=== PATIENT | female | born 2000 | race African-American/Black ===

== ENCOUNTER 2022-05-08 07:38 | Emergency (ER) | payer BC, OTHER ==
--- OUTSIDE RECORDS SUMMARY | 2022-05-08 07:42 | XMS REPORT | Continuity of Care Document ---
:2000 Author Organization [facility] t Address [address] [place] [address] Care Team Providers Name Role Phone Kailey Joel Attending Clinician Unavailable Payers Payer Name Policy Type Policy Number Effective Date Expiration Date S david [employer] 6 [id number] [facility] [employer] of [facility] AETNA C1 [id number] 2020 [facility] 00:00:00 [facility] AETNA C1 [id number] 2020 [facility] 00:00:00 [facility] Problems Condition Condition Condition Status Onset Resolution Last Treating Co mments Source Name Details Category Date Date Treatment Clinician Date [id number] Gastroesop Problem Co mmon hageal [facility] reflux - [facility] disease [facility] esophagiti Medica l s [place] [id number] Seasonal Problem Comm on allergic Spirit rhinitis, - [facility] unspecifie d [facility] [id number] Anxiety Problem Common Spirit [facility] [id number] PMS Problem Common (premenstr Spirit ual - [facility] syndrome) [facility] [id number] Exposure Problem Com mon 105 to strep Spirit throat [facility] [id number] Needs flu Problem Com mon shot Spirit [facility] [id number] Open wound Problem C ommon [id number] of left Spirit thumb, - [facility] initial [facility] [id number] Seasonal Problem Commo n allergic Spirit rhinitis - [facility] due to [facility] [id number] Acute Problem Common non-recurr Spirit ent - [facility] maxillary sinusitis [facility] [id number] Jaw pain Problem Comm on [facility] Vitamin D Vitamin D Problem Com [facility] Allergies, Adverse Reactions, Alerts This patient has no known allergies or adverse reactions. Social History Social Habit Start Date Stop Date Quantity Comments Source History of Tobacco Use Co mmon [facility] Sex Assigned At Com mon [facility] Smoking Status Start Date Stop Date Source Never Smoker Common [facility] Medications Ordered Filled Start Stop Current Ordering Indication Dosage Frequency Signature Comments Components Source Medication Medication Date Date Medication? Clinician (SIG) Name Name Penicillin Penicillin 2021-03 No 1{table BID Penicillin V Potassium V Potassium 0-14 10-24 t} V 500 MG 500 MG 00:00: 00:00 Potassium 00 :00 500 MG Penicillin Penicillin 2021-03- No 1{table BID Penicillin V Potassium V Potassium 0-14 10-24 t} V 500 MG 500 MG 00:00: 00:00 Potassium 00 :00 500 MG Medrol 4 MG Medrol 4 MG 2021-03- No QD Medrol 4 0-14 10-20 MG 00:00: 00:00 00 :00 Medrol 4 MG Medrol 4 MG 2021-03- No QD Medrol 4 0-14 10-20 MG 00:00: 00:00 00 :00 Fluconazole Fluconazole 2021- No 1{table Fluconazol 150 MG 150 MG 04-09 t} e 150 MG 00:00: 00:00 00 :00 Fluconazole Fluconazole 2021- No 1{table Fluconazol 150 MG 150 MG 04-09 t} e 150 MG 00:00: 00:00 00 :00 Flonase 50 Flonase 50 No 2{spray QD Flonase 50 MCG/ACT MCG/ACT 04-05 _in_eac MCG/ACT 00:00: h_nostr 00 il} Cetirizine Cetirizine 2022-0 No 1{table Cetirizine HCl 10 MG HCl 10 MG 1-06 t} HCl 10 MG 00:00: 00 Flonase 50 Flonase 50 2-0 No 2{spray QD Flonase 50 MCG/ACT MCG/ACT 04-05 _in_eac MCG/ACT 00:00: h_nostr 00 il} Cetirizine Cetirizine 2021-0 No 1{table Cetirizine HCl 10 MG HCl 10 MG 1-06 t} HCl 10 MG 00:00: 00 Flonase 50 Flonase 50 2021-0 No 2{spray QD Flonase 50 MCG/ACT MCG/ACT 04-05 _in_eac MCG/ACT 00:00: h_nostr 00 il} Cetirizine Cetirizine 2021-0 No 1{table Cetirizine HCl 10 MG HCl 10 MG 1-06 t} HCl 10 MG 00:00: 00 Flonase 50 Flonase 50 2-0 No 2{spray QD Flonase 50 MCG/ACT MCG/ACT 04-05 _in_eac MCG/ACT 00:00: h_nostr 00 il} Cetirizine Cetirizine 2021-0 No 1{table Cetirizine HCl 10 MG HCl 10 MG 1-06 t} HCl 10 MG 00:00: 00 Cetirizine Cetirizine 2021-0 No 1{table Cetirizine HCl 10 MG HCl 10 MG 1-06 t} HCl 10 MG 00:00: 00 Flonase 50 Flonase 50 2-0 No 2{spray QD Flonase 50 MCG/ACT MCG/ACT 04-05 _in_eac MCG/ACT 00:00: h_nostr 00 il} Flonase 50 Flonase 50 2-0 No 2{spray QD Flonase 50 MCG/ACT MCG/ACT - _in_eac MCG/ACT 00:00: h_nostr 00 il} Cetirizine Cetirizine 2021-0 No 1{table Cetirizine HCl 10 MG HCl 10 MG 1-06 t} HCl 10 MG 00:00: 00 Flonase 50 Flonase 50 2-0 No 2{spray QD Flonase 50 MCG/ACT MCG/ACT 1-06 _in_eac MCG/ACT 00:00: h_nostr 00 il} Cetirizine Cetirizine 2021-0 No 1{table Cetirizine HCl 10 MG HCl 10 MG 1-06 t} HCl 10 MG 00:00: 00 Famotidine Famotidine 2020-0 No QD Famotidine 40 MG 40 MG 9-08 40 MG 00:00: 00 Famotidine Famotidine 2020-0 No QD Famotidine 40 MG 40 MG 9-08 40 MG 00:00: 00 Famotidine Famotidine 2020-0 No QD Famotidine 40 MG 40 MG 9-08 40 MG 00:00: 00 Famotidine Famotidine 2020-0 No QD Famotidine 40 MG 40 MG -08 40 MG 00:00: 00 Famotidine Famotidine 2020-0 No QD Famotidine 40 MG 40 MG -08 40 MG 00:00: 00 Famotidine Famotidine 2020-0 No QD Famotidine 40 MG 40 MG -08 40 MG 00:00: 00 Famotidine Famotidine 2020-0 No QD Famotidine 40 MG 40 MG 9-08 40 MG 00:00: 00 Famotidine Famotidine 2020-0 No QD Famotidine 40 MG 40 MG 9-08 40 MG 00:00: 00 Famotidine Famotidine 2020-0 No QD Famotidine 40 MG 40 MG 9-08 40 MG 00:00: 00 Famotidine Famotidine 2020-0 No QD Famotidine 40 MG 40 MG 9-08 40 MG 00:00: 00 Famotidine Famotidine 2020-0 No QD Famotidine 40 MG 40 MG 9-08 40 MG 00:00: 00 Augmentin Augmentin 2020-0 2021- No 1{table BID Augmentin 500-125 MG 500-125 MG 8-18 08-25 t} 500-125 MG 00:00: 00:00 00 :00 Ortho Ortho 2020-0 No 1{table QD Ortho Tri-Cyclen Tri-Cyclen 5-26 t} Tri-Cyclen Lo Lo 00:00: Lo 0.18/0.215/ 0.18/0.215/ 00 0.18/0.215 0.25 MG-25 0.25 MG-25 /0.25 MCG MCG MG-25 MCG Ortho Ortho -0 No 1{table QD Ortho Tri-Cyclen Tri-Cyclen 5-26 t} Tri-Cyclen Lo Lo 00:00: Lo 0.18/0.215/ 0.18/0.215/ 00 0.18/0.215 0.25 MG-25 0.25 MG-25 /0.25 MCG MCG MG-25 MCG Ortho Ortho 202-0 No 1{table QD Ortho Tri-Cyclen Tri-Cyclen 5-26 t} Tri-Cyclen Lo Lo 00:00: Lo 0.18/0.215/ 0.18/0.215/ 00 0.18/0.215 0.25 MG-25 0.25 MG-25 /0.25 MCG MCG MG-25 MCG Ortho Ortho 2020-0 No 1{table QD Ortho Tri-Cyclen Tri-Cyclen 5-26 t} Tri-Cyclen Lo Lo 00:00: Lo 0.18/0.215/ 0.18/0.215/ 00 0.18/0.215 0.25 MG-25 0.25 MG-25 /0.25 MCG MCG MG-25 MCG Ortho Ortho 2020-0 No 1{table QD Ortho Tri-Cyclen Tri-Cyclen 5-26 t} Tri-Cyclen Lo Lo 00:00: Lo 0.18/0.215/ 0.18/0.215/ 00 0.18/0.215 0.25 MG-25 0.25 MG-25 /0.25 MCG MCG MG-25 MCG Ortho Ortho 202-0 No 1{table QD Ortho Tri-Cyclen Tri-Cyclen 5-26 t} Tri-Cyclen Lo Lo 00:00: Lo 0.18/0.215/ 0.18/0.215/ 00 0.18/0.215 0.25 MG-25 0.25 MG-25 /0.25 MCG MCG MG-25 MCG Ortho Ortho 202-0 No 1{table QD Ortho Tri-Cyclen Tri-Cyclen 5-26 t} Tri-Cyclen Lo Lo 00:00: Lo 0.18/0.215/ 0.18/0.215/ 00 0.18/0.215 0.25 MG-25 0.25 MG-25 /0.25 MCG MCG MG-25 MCG Ortho Ortho 202-0 No 1{table QD Ortho Tri-Cyclen Tri-Cyclen 5-26 t} Tri-Cyclen Lo Lo 00:00: Lo 0.18/0.215/ 0.18/0.215/ 00 0.18/0.215 0.25 MG-25 0.25 MG-25 /0.25 MCG MCG MG-25 MCG Ortho Ortho 202-0 No 1{table QD Ortho Tri-Cyclen Tri-Cyclen 5-26 t} Tri-Cyclen Lo Lo 00:00: Lo 0.18/0.215/ 0.18/0.215/ 00 0.18/0.215 0.25 MG-25 0.25 MG-25 /0.25 MCG MCG MG-25 MCG Ortho Ortho 2020-0 No 1{table QD Ortho Tri-Cyclen Tri-Cyclen 5-26 t} Tri-Cyclen Lo Lo 00:00: Lo 0.18/0.215/ 0.18/0.215/ 00 0.18/0.215 0.25 MG-25 0.25 MG-25 /0.25 MCG MCG MG-25 MCG Ortho Ortho 2020-0 No 1{table QD Ortho Tri-Cyclen Tri-Cyclen 5-26 t} Tri-Cyclen Lo Lo 00:00: Lo 0.18/0.215/ 0.18/0.215/ 00 0.18/0.215 0.25 MG-25 0.25 MG-25 /0.25 MCG MCG MG-25 MCG Ortho Ortho 202-0 No 1{table QD Ortho Tri-Cyclen Tri-Cyclen 5-26 t} Tri-Cyclen Lo Lo 00:00: Lo 0.18/0.215/ 0.18/0.215/ 00 0.18/0.215 0.25 MG-25 0.25 MG-25 /0.25 MCG MCG MG-25 MCG Ortho Ortho 202-0 No 1{table QD Ortho Tri-Cyclen Tri-Cyclen 5-26 t} Tri-Cyclen Lo Lo 00:00: Lo 0.18/0.215/ 0.18/0.215/ 00 0.18/0.215 0.25 MG-25 0.25 MG-25 /0.25 MCG MCG MG-25 MCG Ortho Ortho 202-0 No 1{table QD Tri-Cyclen Tri-Cyclen 5-26 t} Lo Lo 00:00: 0.18/0.215/ 0.18/0.215/ 00 0.25 MG-25 0.25 MG-25 MCG MCG Ortho Ortho No 1{table QD Ortho Common Tri-Cyclen Tri-Cyclen 5-26 t} Tri-Cyclen Spirit Lo Lo 00:00: Lo - [facility]I 0.18/0.215/ 0.18/0.215/ 00 0.18/0.215 St 0.25 MG-25 0.25 MG-25 /0.25 Meenakshi kes MCG MCG MG-25 MCG [facility] Ortho Ortho No 1{table QD Ortho Tri-Cyclen Tri-Cyclen 5-26 t} Tri-Cyclen Lo Lo 00:00: Lo 0.18/0.215/ 0.18/0.215/ 00 0.18/0.215 0.25 MG-25 0.25 MG-25 /0.25 MCG MCG MG-25 MCG Ortho Ortho No 1{table QD Ortho Tri-Cyclen Tri-Cyclen 5-26 t} Tri-Cyclen Lo Lo 00:00: Lo 0.18/0.215/ 0.18/0.215/ 00 0.18/0.215 0.25 MG-25 0.25 MG-25 /0.25 MCG MCG MG-25 MCG Triamcinolo Triamcinolo Yes Na Joel 1 Common ne ne 04-28 applicatio Spirit Acetonide Acetonide 00:00: n to - C HI 00 affected [facility] Triamcinolo Triamcinolo No 1{appli BID Triamcinol ne ne 04-28 cation_ one Acetonide Acetonide 00:00: to_affe Acetonide 0.1 % 0.1 % 00 cted_ar 0.1 % ea} Triamcinolo Triamcinolo 2019- No 1{appli BID Triamcinol ne ne - cation_ one Acetonide Acetonide 00:00: to_affe Acetonide 0.1 % 0.1 % 00 cted_ar 0.1 % ea} Triamcinolo Triamcinolo No 1{appli BID Triamcinol ne ne 04-28 cation_ one Acetonide Acetonide 00:00: to_affe Acetonide 0.1 % 0.1 % 00 cted_ar 0.1 % ea} Triamcinolo Triamcinolo 2020-0 No 1{appli BID Triamcinol ne ne 04-28 cation_ one Acetonide Acetonide 00:00: to_affe Acetonide 0.1 % 0.1 % 00 cted_ar 0.1 % ea} Triamcinolo Triamcinolo 2020-0 No 1{appli BID Triamcinol ne ne 04-28 cation_ one Acetonide Acetonide 00:00: to_affe Acetonide 0.1 % 0.1 % 00 cted_ar 0.1 % ea} Triamcinolo Triamcinolo 2020-0 No 1{appli BID Triamcinol ne ne 04-28 cation_ one Acetonide Acetonide 00:00: to_affe Acetonide 0.1 % 0.1 % 00 cted_ar 0.1 % ea} Triamcinolo Triamcinolo 2020-0 No 1{appli BID Triamcinol ne ne 04-28 cation_ one Acetonide Acetonide 00:00: to_affe Acetonide 0.1 % 0.1 % 00 cted_ar 0.1 % ea} Triamcinolo Triamcinolo 2020-0 No 1{appli BID Triamcinol ne ne 04-28 cation_ one Acetonide Acetonide 00:00: to_affe Acetonide 0.1 % 0.1 % 00 cted_ar 0.1 % ea} Triamcinolo Triamcinolo 2020-0 No 1{appli BID Triamcinol ne ne 04-28 cation_ one Acetonide Acetonide 00:00: to_affe Acetonide 0.1 % 0.1 % 00 cted_ar 0.1 % ea} Triamcinolo Triamcinolo 2020-0 No 1{appli BID Triamcinol ne ne - cation_ one Acetonide Acetonide 00:00: to_affe Acetonide 0.1 % 0.1 % 00 cted_ar 0.1 % ea} Triamcinolo Triamcinolo 2020-0 No 1{appli BID Triamcinol ne ne 04-28 cation_ one Acetonide Acetonide 00:00: to_affe Acetonide 0.1 % 0.1 % 00 cted_ar 0.1 % ea} Triamcinolo Triamcinolo 2020-0 No 1{appli BID Triamcinol ne ne 04-28 cation_ one Acetonide Acetonide 00:00: to_affe Acetonide 0.1 % 0.1 % 00 cted_ar 0.1 % ea} Triamcinolo Triamcinolo 2019-0 No 1{appli BID Triamcinol ne ne 04-28 cation_ one Acetonide Acetonide 00:00: to_affe Acetonide 0.1 % 0.1 % 00 cted_ar 0.1 % ea} Triamcinolo Triamcinolo 2020-0 No 1{appli BID Triamcinol ne ne 04-28 cation_ one Acetonide Acetonide 00:00: to_affe Acetonide 0.1 % 0.1 % 00 cted_ar 0.1 % ea} Triamcinolo Triamcinolo 2019-0 No 1{appli BID ne ne 04-28 cation_ Acetonide Acetonide 00:00: to_affe 0.1 % 0.1 % 00 cted_ar ea} Triamcinolo Triamcinolo 2019-0 No 1{appli BID Triamcinol Common ne ne 04-28 cation_ one Spirit Acetonide Acetonide 00:00: to_affe Acetonide - [facility]I 0.1 % 0.1 % 00 cted_ar 0.1 % St ea} [facility] Triamcinolo Triamcinolo 2020-0 No 1{appli BID Triamcinol ne ne 04-28 cation_ one Acetonide Acetonide 00:00: to_affe Acetonide 0.1 % 0.1 % 00 cted_ar 0.1 % ea} Triamcinolo Triamcinolo 2020-0 No 1{appli BID Triamcinol ne ne - cation_ one Acetonide Acetonide 00:00: to_affe Acetonide 0.1 % 0.1 % 00 cted_ar 0.1 % ea} Montelukast Montelukast 2017-0 Yes Na Joel 1 tablet Common Sodium Sodium 8-06 in the Spirit 00:00: evening - [facility] 00 [facility] Montelukast Montelukast No 1{table QD Montelukas Sodium 10 Sodium 10 8-06 t_in_th t Sodium MG MG 00:00: e_eveni 10 MG 00 ng} Montelukast Montelukast 2017- No 1{table QD Montelukas Sodium 10 Sodium 10 8-06 t_in_th t Sodium MG MG 00:00: e_eveni 10 MG 00 ng} Montelukast Montelukast No 1{table QD Montelukas Sodium 10 Sodium 10 8-06 t_in_th t Sodium MG MG 00:00: e_eveni 10 MG 00 ng} Montelukast Montelukast No 1{table QD Montelukas Sodium 10 Sodium 10 8-06 t_in_th t Sodium MG MG 00:00: e_eveni 10 MG 00 ng} Montelukast Montelukast No 1{table QD Montelukas Sodium 10 Sodium 10 8-06 t_in_th t Sodium MG MG 00:00: e_eveni 10 MG 00 ng} Montelukast Montelukast No 1{table QD Montelukas Sodium 10 Sodium 10 8-06 t_in_th t Sodium MG MG 00:00: e_eveni 10 MG 00 ng} Montelukast Montelukast No 1{table QD Montelukas Sodium 10 Sodium 10 8-06 t_in_th t Sodium MG MG 00:00: e_eveni 10 MG 00 ng} Montelukast Montelukast 0 No 1{table QD Montelukas Sodium 10 Sodium 10 8-06 t_in_th t Sodium MG MG 00:00: e_eveni 10 MG 00 ng} Montelukast Montelukast 0 No 1{table QD Montelukas Sodium 10 Sodium 10 8-06 t_in_th t Sodium MG MG 00:00: e_eveni 10 MG 00 ng} Montelukast Montelukast 2017-0 No 1{table QD Montelukas Sodium 10 Sodium 10 8-06 t_in_th t Sodium MG MG 00:00: e_eveni 10 MG 00 ng} Montelukast Montelukast 2018-0 No 1{table QD Montelukas Sodium 10 Sodium 10 8-06 t_in_th t Sodium MG MG 00:00: e_eveni 10 MG 00 ng} Montelukast Montelukast 2018-0 No 1{table QD Montelukas Sodium 10 Sodium 10 8-06 t_in_th t Sodium MG MG 00:00: e_eveni 10 MG 00 ng} Montelukast Montelukast 2017-0 No 1{table QD Montelukas Sodium 10 Sodium 10 8-06 t_in_th t Sodium MG MG 00:00: e_eveni 10 MG 00 ng} Montelukast Montelukast 2017-0 No 1{table QD Montelukas Sodium 10 Sodium 10 8-06 t_in_th t Sodium MG MG 00:00: e_eveni 10 MG 00 ng} Montelukast Montelukast 2017-0 No 1{table QD Montelukas Sodium 10 Sodium 10 8-06 t_in_th t Sodium MG MG 00:00: e_eveni 10 MG 00 ng} Montelukast Montelukast 2017-0 No 1{table QD Sodium 10 Sodium 10 8-06 t_in_th MG MG 00:00: e_eveni 00 ng} Montelukast Montelukast 2017-0 No 1{table QD Montelukas Common Sodium 10 Sodium 10 8-06 t_in_th t Sodium Spirit MG MG 00:00: e_eveni 10 MG - CHI 00 ng} [facility] Montelukast Montelukast 2017-0 No 1{table QD Montelukas Sodium 10 Sodium 10 8-06 t_in_th t Sodium MG MG 00:00: e_eveni 10 MG 00 ng} Sertraline Sertraline 2017- Yes Na Joel 1 tablet Common HCl HCl 5-15 Spirit 00:00: - [facility] 00 [facility] Sertraline Sertraline 2017-0 No 1{table QD Sertraline HCl 50 MG HCl 50 MG 5-15 t} HCl 50 MG 00:00: 00 Sertraline Sertraline 2017-0 No 1{table QD Sertraline HCl 50 MG HCl 50 MG 5-15 t} HCl 50 MG 00:00: 00 Sertraline Sertraline 2017-0 No 1{table QD Sertraline HCl 50 MG HCl 50 MG 5-15 t} HCl 50 MG 00:00: 00 Sertraline Sertraline 2017-0 No 1{table QD Sertraline HCl 50 MG HCl 50 MG 5-15 t} HCl 50 MG 00:00: 00 Sertraline Sertraline No 1{table QD Sertraline HCl 50 MG HCl 50 MG 5-15 t} HCl 50 MG 00:00: 00 Sertraline Sertraline 0 No 1{table QD Sertraline HCl 50 MG HCl 50 MG 5-15 t} HCl 50 MG 00:00: 00 Sertraline Sertraline No 1{table QD Sertraline HCl 50 MG HCl 50 MG 5-15 t} HCl 50 MG 00:00: 00 Sertraline Sertraline No 1{table QD Sertraline HCl 50 MG HCl 50 MG 5-15 t} HCl 50 MG 00:00: 00 Sertraline Sertraline No 1{table QD Sertraline HCl 50 MG HCl 50 MG 5-15 t} HCl 50 MG 00:00: 00 Sertraline Sertraline No 1{table QD Sertraline HCl 50 MG HCl 50 MG 5-15 t} HCl 50 MG 00:00: 00 Sertraline Sertraline No 1{table QD Sertraline HCl 50 MG HCl 50 MG 5-15 t} HCl 50 MG 00:00: 00 Sertraline Sertraline No 1{table QD Sertraline HCl 50 MG HCl 50 MG 5-15 t} HCl 50 MG 00:00: 00 Sertraline Sertraline No 1{table QD Sertraline HCl 50 MG HCl 50 MG 5-15 t} HCl 50 MG 00:00: 00 Sertraline Sertraline No 1{table QD Sertraline HCl 50 MG HCl 50 MG 5-15 t} HCl 50 MG 00:00: 00 Sertraline Sertraline No 1{table QD Sertraline HCl 50 MG HCl 50 MG 5-15 t} HCl 50 MG 00:00: 00 Sertraline Sertraline 0 No 1{table QD HCl 50 MG HCl 50 MG 5-15 t} 00:00: 00 Sertraline Sertraline No 1{table QD Sertraline Common HCl 50 MG HCl 50 MG 5-15 t} HCl 50 MG Spirit 00:00: - [facility] 00 [facility] Sertraline Sertraline No 1{table QD Sertraline HCl 50 MG HCl 50 MG 5-15 t} HCl 50 MG 00:00: 00 Flonase Flonase Yes Na Joel 2 spray in Common each Spirit nostril - CHI [facility] Flonase 50 Flonase 50 No 2{spray QD Flonase 50 MCG/ACT MCG/ACT _in_eac MCG/ACT h_nostr il} Flonase 50 Flonase 50 No 2{spray QD Flonase 50 MCG/ACT MCG/ACT _in_eac MCG/ACT h_nostr il} Flonase 50 Flonase 50 No 2{spray QD Flonase 50 MCG/ACT MCG/ACT _in_eac MCG/ACT h_nostr il} Famotidine Famotidine No QD Famotidine 40 MG 40 MG 40 MG Flonase 50 Flonase 50 No 2{spray QD Flonase 50 MCG/ACT MCG/ACT _in_eac MCG/ACT h_nostr il} Flonase 50 Flonase 50 No 2{spray QD Flonase 50 MCG/ACT MCG/ACT _in_eac MCG/ACT h_nostr il} Flonase 50 Flonase 50 No 2{spray QD Flonase 50 MCG/ACT MCG/ACT _in_eac MCG/ACT h_nostr il} Azithromyci Azithromyci No QD Azithromyc n 250 MG n 250 MG in 250 MG Flonase 50 Flonase 50 No 2{spray QD Flonase 50 MCG/ACT MCG/ACT _in_eac MCG/ACT h_nostr il} Azithromyci Azithromyci No QD Azithromyc n 250 MG n 250 MG in 250 MG Flonase 50 Flonase 50 No 2{spray QD Flonase 50 MCG/ACT MCG/ACT _in_eac MCG/ACT h_nostr il} Flonase 50 Flonase 50 No 2{spray QD Flonase 50 MCG/ACT MCG/ACT _in_eac MCG/ACT h_nostr il} Azithromyci Azithromyci No QD Azithromyc n 250 MG n 250 MG in 250 MG Flonase 50 Flonase 50 No 2{spray QD Flonase 50 MCG/ACT MCG/ACT _in_eac MCG/ACT h_nostr il} Azithromyci Azithromyci No QD Azithromyc n 250 MG n 250 MG in 250 MG Flonase 50 Flonase 50 No 2{spray QD Flonase 50 MCG/ACT MCG/ACT _in_eac MCG/ACT h_nostr il} Azithromyci Azithromyci No QD Azithromyc n 250 MG n 250 MG in 250 MG Flonase 50 Flonase 50 No 2{spray QD Flonase 50 MCG/ACT MCG/ACT _in_eac MCG/ACT h_nostr il} Azithromyci Azithromyci No QD Azithromyc n 250 MG n 250 MG in 250 MG Flonase 50 Flonase 50 No 2{spray QD Flonase 50 MCG/ACT MCG/ACT _in_eac MCG/ACT h_nostr il} Azithromyci Azithromyci No QD Azithromyc n 250 MG n 250 MG in 250 MG Flonase 50 Flonase 50 No 2{spray QD Flonase 50 MCG/ACT MCG/ACT _in_eac MCG/ACT h_nostr il} Flonase 50 Flonase 50 No 2{spray QD MCG/ACT MCG/ACT _in_eac h_nostr il} Flonase 50 Flonase 50 No 2{spray QD Flonase 50 Common MCG/ACT MCG/ACT _in_eac MCG/ACT Spi rit h_nostr - CHI il} [facility] Flonase 50 Flonase 50 No 2{spray QD Flonase 50 MCG/ACT MCG/ACT _in_eac MCG/ACT h_nostr il} Flonase 50 Flonase 50 No 2{spray QD Flonase 50 MCG/ACT MCG/ACT _in_eac MCG/ACT h_nostr il} Immunizations Ordered Immunization Filled Immunization Date Status Commen ts Source Name Name Td Td 2020-05-11 Completed [facility] 12:56[facility] Td Td 2020-05-11 Completed [facility] 12[facility]56:00 [facility] Td Td 2020-05-11 Completed [facility] 12:56:00 [facility] Td Td 2020-05-11 Completed [facility] 12:56:00 [facility] Td Td 2020-05-11 Completed [facility] 12:56:00 [facility] Td Td 2020-05-11 Completed [facility] 12:56:00 - [facility] Td Td 2020-05-11 Completed [facility] 12:56:00 - [facility] Td Td 2020-05-11 Completed [facility] 12:56:00 - [facility] Td Td 2020-05-11 Completed [facility] 12[facility]56:00 - [facility] Td Td 2020-05-11 Completed [facility] 12:56:00 [facility] Td Td 2020-05-11 Completed [facility] 12:56:00 [facility] Td Td 2020-05-11 Completed [facility] 12:56:00 - [facility] Td Td 2020-05-11 Completed [facility] 12:56:00 - [facility] Td Td 2020-05-11 Completed [facility] 12:56:00 - [facility] Td Td 2020-05-11 Completed [facility] 12:56:00 [facility] Td Td 2020-05-11 Completed [facility] 12:56:00 - [facility] Td Td 2020-05-11 Completed [facility] 12:56:00 [facility] Td Td 2020-05-11 Completed [facility] 12:56:00 [facility] Afluria single dose Afluria single dose 2020-03-03 Completed [facility] 11:26:00 [facility] Afluria single dose Afluria single dose 2020-03-03 Completed [facility] 11:26:00 [facility] Afluria single dose Afluria single dose 2020-03-03 Completed [facility] 11:26:00 [facility] Afluria single dose Afluria single dose 2020-03-03 Completed [facility] 11:26:00 [facility] Afluria single dose Afluria single dose 2020-03-03 Completed [facility] 11:26:00 [facility] Afluria single dose Afluria single dose 2020-03-03 Completed [facility] 11:26:00 [facility] Afluria single dose Afluria single dose 2020-03-03 Completed [facility] 11::00 [facility] Afluria single dose Afluria single dose 2020-03-03 Completed [facility] 11:26:00 [facility] Afluria single dose Afluria single dose 2020-03-03 Completed [facility] 11:26:00 [facility] Afluria single dose Afluria single dose 2020-03-03 Completed [facility] 11:26:00 [facility] Afluria single dose Afluria single dose 2020-03-03 Completed [facility] 11::00 [facility] Afluria single dose Afluria single dose 2020-03-03 Completed [facility] 11:26:00 - [facility] Afluria single dose Afluria single dose 2020-03-03 Completed [facility] 11[facility]26:00 - [facility] Afluria single dose Afluria single dose 2020-03-03 Completed [facility] 11:26:00 [facility] Afluria single dose Afluria single dose 2020-03-03 Completed [facility] 11:26:00 [facility] Afluria single dose Afluria single dose 2020-03-03 Completed [facility] 11:26:00 [facility] Afluria single dose Afluria single dose 2020-03-03 Completed [facility] 11:26:00 [facility] Afluria single dose Afluria single dose 2020-03-03 Completed [facility] 11:26:00 [facility] Meningoccal MCV4 Meningoccal MCV4 2017-11-20 Completed [facility] 08[facility]44:00 [facility] Meningoccal MCV4 Meningoccal MCV4 2017-11-20 Completed [facility] 08:44:00 [facility] Meningoccal MCV4 Meningoccal MCV4 2017-11-20 Completed [facility] 08:44:00 [facility] Meningoccal MCV4 Meningoccal MCV4 2017-11-20 Completed [facility] 08:44:00 [facility] Meningoccal MCV4 Meningoccal MCV4 2017-11-20 Completed [facility] 08[facility]44:00 - [facility] Meningoccal MCV4 Meningoccal MCV4 2017-11-20 Completed [facility] 08:44:00 - [facility] Meningoccal MCV4 Meningoccal MCV4 2017-11-20 Completed [facility] 08:44:00 - [facility] Meningoccal MCV4 Meningoccal MCV4 2017-11-20 Completed [facility] 08:44:00 - [facility] Meningoccal MCV4 Meningoccal MCV4 2017-11-20 Completed [facility] 08:44:00 - [facility] Meningoccal MCV4 Meningoccal MCV4 2017-11-20 Completed [facility] 08:44:00 - [facility] Meningoccal MCV4 Meningoccal MCV4 2017-11-20 Completed [facility] 08[facility]44:00 - [facility] Meningoccal MCV4 Meningoccal MCV4 2017-11-20 Completed [facility] 08:44:00 - [facility] Meningoccal MCV4 Meningoccal MCV4 2017-11-20 Completed [facility] 08:44:00 - [facility] Meningoccal MCV4 Meningoccal MCV4 2017-11-20 Completed [facility] 08:44:00 - [facility] Meningoccal MCV4 Meningoccal MCV4 2017-11-20 [facility] 08:44:[facility] - [facility] Meningoccal MCV4 Meningoccal MCV4 2017-11-20 Completed [facility] 08:44:00 - [facility] Meningoccal MCV4 Meningoccal MCV4 2017-11-20 Completed [facility] 08:44:00 - [facility] Meningoccal MCV4 Meningoccal MCV4 2017-11-20 Completed [facility] 08:44:00 - [facility] Meningoccal MCV4 Meningoccal MCV4 2017-11-20 Completed [facility]:00 - [facility] Procedures This patient has no known procedures. Encounters Start End Encounter Admission Attending Care Care Encounter Source Date/Time Date/Time Type Type Clinicians Facility Department ID 2022-01-11 Outpatient Joel, Na STLMLC STLMLC [id number] Common 08:26:00 [id number] [facility] 2021-04-25 Outpatient Joel, Na STLMLC STLMLC [id number] Common 14:32:33 [facility] 2021-04-25 Outpatient Joel, Na STLMLC STLMLC [id number] Common 14:31:52 [facility] 2021-04-25 Outpatient Joel, Na STLMLC STLMLC [id number] 2 Common 13:08:57 [id number] [facility] 2021-04-25 Outpatient Joel, Na STLMLC STLMLC [id number] 2 Common 13:08:20 [id number] [facility] 2021-04-25 Outpatient Joel, Na STLMLC STLMLC [id number] 2 Common 13:07:52 [id number] [facility] 2021-04-25 Outpatient Joel, Na STLMLC STLMLC [id number] 2 Common 13:06:50 [id number] [facility] 2021-04-25 Outpatient Joel, Na STLMLC STLMLC [id number] 2 Common 12:30:32 [id number] [facility] 2021-04-25 Outpatient Joel, Na STLMLC STLMLC [id number] 2 Common 12:10:31 [id number] [facility] 2021-04-25 Outpatient Joel, Na STLMLC STLMLC [id number] 2 Common 11:31:42 [id number] [facility] 2021-04-25 Outpatient Joel, Na STLMLC STLMLC [id number] 2 Common 11:27:43 [id number] [facility] 2021-04-25 Outpatient Joel, Na STLMLC STLMLC [id number] 2 Common 11:18:11 [id number] [facility] 2021-04-25 Outpatient Joel, Na STLMLC STLMLC [id number] 2 Common 11:04:05 [id number] [facility] 2022-01-11 2022-01-11 (TEL) STLMLC STLMLC [id number] [facility]:00:00 00:00:00 [facility] 2022-01-11 2022-01-11 OFFICE STLMLC STLMLC [id number] [facility] 00:00:00 00:00:00 VISIT EST Spir it PT LEVEL 3 [facility] 2021-04-09 2021-04-09 (TEL) STLMLC STLMLC [id number] [facility] 00:00:00 00:00:00 [facility] 2021-04-09 2021-04-09 (TEL) STLMLC STLMLC [id number] [facility] 00:00:00 00:00:00 [facility] 2021-04-05 2021-04-05 (TEL) STLMLC STLMLC [id number] [facility] 00:00:00 00:00:00 [facility] 2021-04-05 2021-04-05 (TEL) STLMLC STLMLC [id number] [facility] 00:00:00 00:00:00 [facility] 2021-04-05 2021-04-05 OFFICE STLMLC STLMLC [id number] [facility] 00:00:00 00:00:00 VISIT EST Spir it PT LEVEL 3 [facility] 2021-02-12 2021-02-12 (TEL) STLMLC STLMLC [id number] [facility] 00:00:00 00:00:00 [facility] 2021-01-09 2021-01-09 (TEL) STLMLC STLMLC [id number] [facility] 00:00:00 00:00:00 [facility] 2021-01-09 2021-01-09 OFFICE STLMLC STLMLC [id number] [facility] 00:00:00 00:00:00 VISIT EST Spir it PT LEVEL 3 [facility] 2020-12-06 2020-12-06 (TEL) STLMLC STLMLC [id number] [facility] 00:00:00 00:00:00 [facility] 2020-12-06 2020-12-06 OFFICE STLMLC STLMLC [id number] [facility] 00:00:00 00:00:00 VISIT EST Spir it PT LEVEL 3 [facility] 2020-11-15 2020-11-15 (TEL) STLMLC STLMLC [id number] [facility] 00:00:00 00:00:00 [facility] 2020-11-02 2020-11-02 (TEL) STLMLC STLMLC [id number] [facility] 00:00:00 00:00:00 [facility] 2020-11-02 2020-11-02 OFFICE STLMLC STLMLC [id number] [facility] 00:00:00 00:00:00 VISIT EST Spir it PT LEVEL 3 [facility] 2020-08-24 2020-08-24 (TEL) STLMLC STLMLC [id number] [facility] 00:00:00 00:00:00 [facility] 2020-08-23 2020-08-23 (EST. STLMLC STLMLC [id number] [facility] 00:00:00 00:00:00 VIDEO) EST Spi rit VIRTUAL - [facility] V[facility] 2020-05-11 2020-05-11 (INJ) STLMLC STLMLC [id number] [facility] 00:00:00 00:00:00 Injection Spir it - [facility] 2020-03-03 2020-03-03 Outpatient STLMLC STLMLC [id number] Common 00:00:00 00:00:00 [facility] 2019-09-20 2019-09-20 [id number] Common 13:15:00 13:15:[address] [facility] 2019-09-20 2019-09-20 [facility] [id number] Common 11:58:00 11:58:[address] [facility] 2019-04-28 2019-04-28 [facility] [id number] Common 11:20:00 11:20:[address] [facility] 2018-05-08 2018-05-08 [facility] [id number] Common 11:24:00 11:24:[address] [facility] 2017-11-27 2017-11-27 [facility] [id number] Common 07:23:00 07:23:[address] [facility] 2017-11-20 2017-11-20 [facility] [id number] Common 10:45:00 10:45:[address] [facility] 2017-11-03 2017-11-03 [facility] [id number] Common 12:15:00 12:15:[address] [facility] 2017-08-27 2017-08-27 [facility] [id number] Common 14:40:00 14:40:[address] [facility] 2017-08-12 2017-08-12 [facility] [id number] Common 14:00:00 14:00:[address] [facility] Results Test Description Test Time Test Comments Results Result Comments Source [facility]COVID19[facility] 2021-04-05 00:00:00 Test Item Value Reference Range Interpretation Comme nts SARS-CoV-2 INTERPRETATION (test code = 23193-5) POSITIVE SEE NO TE SOURCE (test code = 87224-7) NASOPHARYNGEAL SARS-COV 2 AntigenSARS-COV 2 AntigenSARS-COV 2 AntigenSARS-COV 2 Antigen
[2022-05-08 10:28] LABS: SARS-COV-2 RT PCR NEGATIVE (NEGATIVE)
--- NOTE | 2022-05-08 10:30 | ER ---
Nurse's Notes [facility] Name: Jade Klein Age: 22 yrs Sex: Female : 2000 Arrival Date: 05/08/2022 Time: 07:43 Bed 12 Private MD: Diagnosis: Influenza due to identified novel influenza A virus;Fever, unspecified;Nasal congestion Presentation: 05/08 07:51 Chief complaint:. Chief complaint: Patient states: patient states she woke up this ap3 morning with a headache, cough, congestion and feeling fatigued. 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 Coronavirus screen: At this time, the client does not indicate any symptoms associated with coronavirus-19. Ebola Screen: No symptoms or risks identified at this time. Initial Sepsis Screen: Does the patient meet any 2 criteria? No. Patient's initial sepsis screen is negative. Does the patient have a suspected source of infection? No. Patient's initial sepsis screen is negative. Risk Assessment: Do you want to hurt yourself or someone else? Patient reports no desire to harm self or others. Onset of symptoms was May 08, 2022. 07:51 Method Of Arrival: Ambulatory ap3 07:51 Acuity: LUIS M 4 ap3 Triage Assessment: 07:56 General: Appears in no apparent distress. Behavior is calm, cooperative, Reports fever ap3 for feeling ill for fatigue for. Pain: Complains of pain in generalized body aches Pain currently is 6 out of 10 on a pain scale. Neuro: Level of Consciousness is awake, alert, obeys commands, Oriented to person, place, time, situation, Gait is steady. Cardiovascular: Patient's skin is warm and dry. Respiratory: Reports cough that is Airway is patent Respiratory effort is even, unlabored, Respiratory pattern is regular, symmetrical. 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 - Social history:: Smoking status: Patient denies any tobacco usage or history of. Screenin:56 [facility] ED Fall Risk Assessment (Adult) History of falling in the last 3 months, ap3 including since admission No falls in past 3 months (0 pts). Abuse screen: Denies threats or abuse. Nutritional screening: No deficits noted. Tuberculosis screening: No symptoms or risk factors identified. Assessment: 09:33 Reassessment: Patient and/or family updated on plan of care and expected duration. Pain ap3 level reassessed. Patient is alert, oriented x 3, equal unlabored respirations, skin warm/dry/pink. Vital Signs: 07:51 BP 128 / 86; Pulse 104; Resp 18; Temp 99.0(T); Pulse Ox 97% ; Weight 80.29 kg; Height 5 ap3 ft. 5 in. (165.10 cm); 07:51 Pain 6/10; ap3 07:51 Body Mass Index 29.45 (80.29 kg, 165.10 cm) ap3 ED Course: 07:43 Patient arrived in ED. as 07:47 Mayito Walker DO is Attending Physician. ms3 07:55 Triage completed. ap3 07:57 Eufemia Beaver, REED is Primary Nurse. ap3 07:57 Arm band placed on right wrist. ap3 07:57 Patient has correct armband on for positive identification. Bed in low position. Call ap3 light in reach. Pulse ox on. NIBP on. 10:29 Seun Abdullahi DO is Referral Physician. ms3 10:37 No provider procedures requiring assistance completed. Patient did not have IV access ap3 during this emergency room visit. Administered Medications: No medications were administered Medication: 07:57 VIS not applicable for this client. ap3 Outcome: 10:29 Discharge ordered by . ms3 10:37 Discharged to home ambulatory. ap3 10:37 Condition: good 10:37 Discharge instructions given to patient, Instructed on discharge instructions, follow up and referral plans. medication usage, Demonstrated understanding of instructions, follow-up care, medications, Prescriptions given X 1. 10:37 Patient left the ED. ap3 Signatures: Luisana Ortiz Amanda, RN RN ap3 Mayito Walker DO DO ms3
--- NOTE | 2022-05-08 10:30 | EDPHYS ---
Physician Documentation [facility] Name: Jade Klein Age: 22 yrs Sex: Female : 2000 Arrival Date: 05/08/2022 Time: 07:43 Bed 12 Private MD: ED Physician Mayito Walker HPI: 05/08 08:07 This 22 yrs old Black Female presents to ER via Ambulatory with complaints of Flu ms3 Symptoms. 08:07 22-year-old female with no past medical history presents for nasal congestion and fever ms3 that began this morning. Patient states she has been around sick contacts at work. Patient states her body aches are rated a 6/10. Patient denies alleviating or inciting factors. Patient endorses headache and cough. Patient denies nausea vomiting.. 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 - Social history:: Smoking status: Patient denies any tobacco usage or history of. ROS: 08:07 Constitutional: Negative for fever, and chills. Neck: Negative for injury, pain, and ms3 swelling, Respiratory: Negative for shortness of breath, cough, wheezing, and pleuritic chest pain, Abdomen/GI: Negative for abdominal pain, nausea, vomiting, diarrhea, and constipation, MS/Extremity: Negative for injury and deformity, Skin: Negative for injury, rash, and discoloration, Allergy/Immunology: Negative for hives, rash, and allergies. 08:07 Constitutional: Positive for body aches, chills, fever. 08:07 ENT: Positive for rhinorrhea, sinus congestion. 08:07 All other systems are negative. Exam: 08:07 Constitutional: This is a well developed, well nourished patient who is awake, alert, ms3 and in no acute distress. Head/Face: Normocephalic, atraumatic. Neck: Trachea midline, no cervical lymphadenopathy. Supple, full range of motion without nuchal rigidity, or vertebral point tenderness. No Meningismus. Chest/axilla: Normal chest wall appearance and motion. Nontender with no deformity. Cardiovascular: Regular rate and rhythm with a normal S1 and S2. No gallops, murmurs, or rubs. Normal PMI, no JVD. No pulse deficits. Respiratory: Lungs have equal breath sounds bilaterally, clear to auscultation and percussion. No rales, rhonchi or wheezes noted. No increased work of breathing, no retractions or nasal flaring. Abdomen/GI: Soft, non-tender, with normal bowel sounds. No distension or tympany. No guarding or rebound. No evidence of tenderness throughout. Skin: Warm, dry with normal turgor. Normal color with no rashes, no lesions, and no evidence of cellulitis. MS/ Extremity: Pulses equal, no cyanosis. Neurovascular intact. Full, normal range of motion. Vital Signs: 07:51 BP 128 / 86; Pulse 104; Resp 18; Temp 99.0(T); Pulse Ox 97% ; Weight 80.29 kg; Height 5 ap3 ft. 5 in. (165.10 cm); 07:51 Pain 6/10; ap3 07:51 Body Mass Index 29.45 (80.29 kg, 165.10 cm) ap3 MDM: 07:47 Patient medically screened. ms3 08:07 Differential Diagnosis flu, COVID vs RSV vs PNA. ms3 10:29 Data reviewed: vital signs, nurses notes, lab test result(s), and as a result, I will ms3 discharge patient. Test considered but Not performed: X-ray: Patient with normal room air oxygen saturation, lung sounds clear to auscultation bilaterally.. Counseling: I had a detailed discussion with the patient and/or guardian regarding: the historical points, exam findings, and any diagnostic results supporting the discharge/admit diagnosis, lab results, the need for outpatient follow up. ED course: Discussed positive flu with patient. Patient to follow-up with her primary care physician in 2 to 3 days. Patient given prescription for Tamiflu. All questions were answered. Return precautions discussed include worsening symptoms, or any other concerns. On reevaluation patient is alert and oriented x4, no apparent distress, nontoxic, ambulatory in emergency department, speaking full sentences.. 05/08 07:56 Order name: COVID-19/FLU A+B/RSV; Complete Time: 10:33 ms3 Administered Medications: No medications were administered Disposition Summary: 05/08/22 10:29 Discharge Ordered Location: Home ms3 Condition: Stable ms3 Diagnosis - Influenza due to identified novel influenza A virus ms3 - Fever, unspecified ms3 - Nasal congestion ms3 Followup: ms3 - With: Seun Abdullahi DO - When: 2 - 3 days - Reason: Re-evaluation by your physician Discharge Instructions: - Discharge Summary Sheet ms3 - Fever, Adult ms3 - Influenza, Adult, [id number] ms3 Forms: - Medication Reconciliation Form ms3 - Work release form ap3 - Thank You Letter ms3 - Antibiotic Education ms3 - Prescription Opioid Use ms3 Prescriptions: - Tamiflu 75 mg Oral Capsule - take 1 tablet by ORAL route every 12 hours for 5 days; 10 tablet; Refills: 0, ms3 Product Selection Permitted Signatures: Dispatcher [employer] Eufemia Murray RN RN ap3 Mayito Walker DO DO ms3
[2022-05-08 10:48] VITALS: BP 128/86; TEMP 99; O2SAT 97
== END 2022-05-08 10:37 | disposition home or self-care (01) ==
LOC: ER 07:38
DX: J10.1 Influenza due to other identified influenza virus with other respiratory manifestations (principal); R09.81 Nasal congestion; Z20.822 Contact with and (suspected) exposure to COVID-19
CPT/HCPCS: 0241U

== ENCOUNTER 2023-11-06 04:16 | Emergency (ER) | payer BC ==
--- OUTSIDE RECORDS SUMMARY | 2023-11-06 04:18 | XMS REPORT | Continuity of Care Document ---
Author Name Unknown Address [address] [facility] [address] [place] [address] [facility] Address [address] [facility] [address] [place] [address] Care Team Providers Care Clinical Trial Educator Name Role Phone Miriam Rodríguez Attending Clinician Unavailable Kailey Joel Attending Clinician Unavailable GC_GCBZW_Kadiyala_S Attending Clinician Unavaila ble GC_GCBZW_Kadiyala_S Admitting Clinician Unavaila ble Payers Payer Name Policy Type Policy Number Effective Date Expirati on Date Source [facility] 6 [id number] [facility] AETNA C1 [id number] 2020 00:00:00 [facility] AETNA C1 [id number] 2020 00:00:00 [facility] Problems Condition Name Condition Details Condition Category Status Onset Date Resolution Date Last Treatment Date Treating Clinician Comments Source Abnormal weight gain Abnormal Weight Gain Problem Active 07-02 00:00: 00 [facility] Venereal disease screening Venereal Disease Screening Problem Active 07-02 00:00: 00 [facility] Gynecologi eugene examinatio n abnormal Gynecologi eugene Examinatio n Abnormal Problem Active 07-02 00:00: 00 [facility] Premenstru al tension syndrome Premenstru al Tension Syndrome Problem Active 2020-03 00:00: 00 [facility] [id number] Gastroesop hageal reflux disease without esophagiti s Problem [facility] [id number] Seasonal allergic rhinitis, unspecifie d trigger Problem [facility] [id number] Acute cough Problem [facility] [id number] Encounter for screening for other viral diseases Problem [facility] [id number] Menstrual periods irregular Problem [facility] [id number] PMDD (premenstr ual dysphoric disorder) Problem [facility] [id number] Anxiety Problem [facility] [id number] Exposure to strep throat Problem [facility] [id number] Needs flu shot Problem [facility] [id number] Open wound of left thumb, initial encounter Problem [facility] [id number] Seasonal allergic rhinitis due to pollen Problem [facility] [id number] Acute non-recurr ent maxillary sinusitis Problem [facility] [id number] Jaw pain Problem Commo n [facility] Vitamin D deficiency Vitamin D deficiency Problem [facility] Social History Social Habit Start Date Stop Date Quantity Comments Source History of Tobacco Use [facility] Sex Assigned At [facility] Smoking Status Start Date Stop Date Source Never Smoker [facility] Medications Ordered Medication Name Filled Medication Name Start Date Stop Date Current Medication? Ordering Clinician Indication Dosage Frequency Signature (SIG) Comments Components Source Mupirocin 2 % Mupirocin 2 % 07-28 00:00: 00 No 1{appli cation} BID Mupirocin 2 % Cetirizine HCl 10 MG Cetirizine HCl 10 MG 1-06 00:00: 00 No 1{table t} Cetirizine HCl 10 MG Famotidine 40 MG Famotidine 40 MG 2020-12-06 00:00: 00 No QD Famotidine 40 MG Triamcinolo ne Acetonide 0.1 % Triamcinolo ne Acetonide 0.1 % 04-28 00:00: 00 No 1{appli cation_ to_affe cted_ar ea} BID Triamcinol one Acetonide 0.1 % Montelukast Sodium 10 MG Montelukast Sodium 10 MG 11-03 00:00: 00 No 1{table t_in_th e_eveni ng} QD Montelukas t Sodium 10 MG Flonase 50 MCG/ACT Flonase 50 MCG/ACT No 2{spray _in_eac h_nostr il} QD Flonase 50 MCG/ACT Estarylla 0.25-35 MG-MCG Estarylla 0.25-35 MG-MCG No 1{table t} QD Estarylla 0.25-35 MG-MCG Estarylla 0.25 mg-35 mcg tablet Take 1 tablet every day by oral route as directed for 28 days. Estarylla 0.25 mg-35 mcg tablet Take 1 tablet every day by oral route as directed for 28 days. No 1 Q1D Estarylla 0.25 mg-35 mcg tablet Take 1 tablet every day by oral route as directed for 28 days. [facility] Immunizations Ordered Immunization Name Filled Immunization Name Date Status Comments Source Td Td 2020-05-11 12:56:00 Completed [facility] Td Td 2020-05-11 12:56:00 Completed [facility] Td Td 2020-05-11 12:56:00 Completed [facility] Td Td 2020-05-11 12:56:00 Completed [facility] Td Td 2020-05-11 12:56:00 Completed [facility] Td Td 2020-05-11 12:56:00 Completed [facility] Td Td 2020-05-11 12:56:00 Completed [facility] Td Td 2020-05-11 12:56:00 Completed [facility] Td Td 2020-05-11 12:56:00 Completed [facility] Td Td 2020-05-11 12:56:00 Completed [facility] Td Td 2020-05-11 12:56:00 Completed [facility] Td Td 2020-05-11 12:56:00 Completed [facility] Td Td 2020-05-11 12:56:00 Completed [facility] Td Td 2020-05-11 12:56:00 Completed [facility] Td Td 2020-05-11 12:56:00 Completed [facility] Td Td 2020-05-11 12:56:00 Completed [facility] Td Td 2020-05-11 12:56:00 Completed [facility] Td Td 2020-05-11 12:56:00 Completed [facility] Afluria single dose Afluria single dose 11:26:00 Completed [facility] Afluria single dose Afluria single dose 11:26:00 Completed [facility] Afluria single dose Afluria single dose 11:26:00 Completed [facility] Afluria single dose Afluria single dose 11:26:00 Completed [facility] Afluria single dose Afluria single dose 11:26:00 Completed [facility] Afluria single dose Afluria single dose 11:26:00 Completed [facility] Afluria single dose Afluria single dose 11:26:00 Completed [facility] Afluria single dose Afluria single dose 11:26:00 Completed [facility] Afluria single dose Afluria single dose 11:26:00 Completed [facility] Afluria single dose Afluria single dose 11:26:00 Completed [facility] Afluria single dose Afluria single dose 11:26:00 Completed [facility] Afluria single dose Afluria single dose 11:26:00 Completed [facility] Afluria single dose Afluria single dose 11:26:00 Completed [facility] Afluria single dose Afluria single dose 11:26:00 Completed [facility] Afluria single dose Afluria single dose 11:26:00 Completed [facility] Afluria single dose Afluria single dose 11:26:00 Completed [facility] Afluria single dose Afluria single dose 11:26:00 Completed [facility] Afluria single dose Afluria single dose 11:26:00 Completed [facility] Meningoccal MCV4 Meningoccal MCV4 2017-11-20 08:44:00 Completed [facility] Meningoccal MCV4 Meningoccal MCV4 2017-11-20 08:44:00 Completed [facility] Meningoccal MCV4 Meningoccal MCV4 2017-11-20 08:44:00 Completed [facility] Meningoccal MCV4 Meningoccal MCV4 2017-11-20 08:44:00 Completed [facility] Meningoccal MCV4 Meningoccal MCV4 2017-11-20 08:44:00 Completed [facility] Meningoccal MCV4 Meningoccal MCV4 2017-11-20 08:44:00 Completed [facility] Meningoccal MCV4 Meningoccal MCV4 2017-11-20 08:44:00 Completed [facility] Meningoccal MCV4 Meningoccal MCV4 2017-11-20 08:44:00 Completed [facility] Meningoccal MCV4 Meningoccal MCV4 2017-11-20 08:44:00 Completed [facility] Meningoccal MCV4 Meningoccal MCV4 2017-11-20 08:44:00 Completed [facility] Meningoccal MCV4 Meningoccal MCV4 2017-11-20 08:44:00 Completed [facility] Meningoccal MCV4 Meningoccal MCV4 2017-11-20 08:44:00 Completed [facility] Meningoccal MCV4 Meningoccal MCV4 2017-11-20 08:44:00 Completed [facility] Meningoccal MCV4 Meningoccal MCV4 2017-11-20 08:44:00 Completed [facility] Meningoccal MCV4 Meningoccal MCV4 2017-11-20 08:44:00 Completed [facility] Meningoccal MCV4 Meningoccal MCV4 2017-11-20 08:44:00 Completed [facility] Meningoccal MCV4 Meningoccal MCV4 2017-11-20 08:44:00 Completed [facility] Meningoccal MCV4 Meningoccal MCV4 2017-11-20 08:44:00 Completed [facility] Meningoccal MCV4 Meningoccal MCV4 2017-11-20 00:00:00 Completed [facility] Afluria single dose Afluria single dose Unknown Completed [facility] Td Td Unknown Completed [facility] Meningoccal MCV4 Meningoccal MCV4 Unknown Completed [facility] Afluria (IIV4) - 3 years and older - SDS - 0.5mL Afluria (IIV4) - 3 years and older - SDS - 0.5mL Unknown Completed [facility] Td Td Unknown Completed [facility] Meningoccal MCV4 Meningoccal MCV4 Unknown Completed [facility] Afluria (IIV4) - 3 years and older - SDS - 0.5mL Afluria (IIV4) - 3 years and older - SDS - 0.5mL Unknown Completed [facility] Td Td Unknown Completed [facility] Meningoccal MCV4 Meningoccal MCV4 Unknown Completed [facility] Afluria (IIV4) - 3 years and older - SDS - 0.5mL Afluria (IIV4) - 3 years and older - SDS - 0.5mL Unknown Completed [facility] Td Td Unknown Completed Common [facility] Meningoccal MCV4 Meningoccal MCV4 Unknown Completed [facility] Afluria (IIV4) - 3 years and older - SDS - 0.5mL Afluria (IIV4) - 3 years and older - SDS - 0.5mL Unknown Completed [facility] Td Td Unknown Completed [facility] Meningoccal MCV4 Meningoccal MCV4 Unknown Completed [facility] Afluria (IIV4) - 3 years and older - SDS - 0.5mL Afluria (IIV4) - 3 years and older - SDS - 0.5mL Unknown Completed [facility] Td Td Unknown Completed [facility] Meningoccal MCV4 Meningoccal MCV4 Unknown Completed [facility] Afluria (IIV4) - 3 years and older - SDS - 0.5mL Afluria (IIV4) - 3 years and older - SDS - 0.5mL Unknown Completed [facility] Td Td Unknown Completed [facility] Meningoccal MCV4 Meningoccal MCV4 Unknown Completed [facility] Afluria (IIV4) - 3 years and older - SDS - 0.5mL Afluria (IIV4) - 3 years and older - SDS - 0.5mL Unknown Completed [facility] Td Td Unknown Completed [facility] Meningoccal MCV4 Meningoccal MCV4 Unknown Completed [facility] Afluria (IIV4) - 3 years and older - SDS - 0.5mL Afluria (IIV4) - 3 years and older - SDS - 0.5mL Unknown Completed [facility] Td Td Unknown Completed [facility] Meningoccal MCV4 Meningoccal MCV4 Unknown Completed Common [facility] Vital Signs Vital Name Observation Time Observation Value Comments S ource BMI (Body Mass Index) 2023-08-27 00:00:00 30.9 kg/m2 [facility] BP Diastolic 2023-08-27 00:00:00 74 mm[Hg] [facility] Height 2023-08-27 00:00:00 65 [in_i] [facility] Body Weight 2023-08-27 00:00:00 185.4 [lb_av] [facility] BP Systolic 2023-08-27 00:00:00 112 mm[Hg] [facility] height 2023-06-16 11:40:00 64.0 [in_i] Comm on [facility] weight 2023-06-16 11:40:00 177 [lb_av] Comm on [facility] bmi 2023-06-16 11:40:00 30.38 kg/m2 Comm on [facility] height 2023-02-14 11:40:00 64.0 [in_i] Comm on [facility] weight 2023-02-14 11:40:00 177.6 [lb_av] Co [facility] bmi 2023-02-14 11:40:00 30.48 kg/m2 Comm on [facility] height 2022-12-05 16:00:00 64.0 [in_i] Comm on [facility] weight 2022-12-05 16:00:00 190 [lb_av] Comm on [facility] bmi 2022-12-05 16:00:00 32.61 kg/m2 Comm on [facility] height 2022-11-01 10:20:00 64.00 [in_i] Com [facility] weight 2022-11-01 10:20:00 184.0 [lb_av] Co on [facility] temperature 2022-11-01 10:20:00 98.4 [degF] Com [facility] bmi 2022-11-01 10:20:00 31.58 kg/m2 Comm on [facility] oximetry 2022-11-01 10:20:00 96 % Commo n [facility] respiratory rate 2022-11-01 10:20:00 15 /min [facility] blood pressure systolic 2022-11-01 10:20:00 120 mm[Hg] [facility] blood pressure diastolic 2022-11-01 10:20:00 72 mm[Hg] [facility] height 2022-08-01 09:00:00 64.00 [in_i] Com [facility] weight 2022-08-01 09:00:00 181 [lb_av] Comm on [facility] temperature 2022-08-01 09:00:00 98.4 [degF] Com [facility] bmi 2022-08-01 09:00:00 31.07 kg/m2 Comm on [facility] oximetry 2022-08-01 09:00:00 100 % Commo n [facility] respiratory rate 2022-08-01 09:00:00 15 /min [facility] blood pressure systolic 2022-08-01 09:00:00 104 mm[Hg] [facility] blood pressure diastolic 2022-08-01 09:00:00 69 mm[Hg] [facility] Encounters Start Date/Time End Date/Time Encounter Type Admission Type Attending Clinicians Care Facility Care Department Encounter ID Source 2022-12-11 10:50:00 Outpatient Marcos Miriam [facility] [id number] [facility] 2022-10-31 13:23:00 Outpatient Marcos Miriam [facility] [id number] [facility] 2022-09-25 09:58:00 Outpatient Miriam Rodríguez [facility] [id number] [facility] 2022-01-11 08:26:00 Outpatient Joel, Na STLMLC [facility] [id number] [facility] 2021-04-25 14:32:33 Outpatient Joel, Na STLMLC [facility] [id number] [facility] 2021-04-25 14:31:52 Outpatient Joel, Na [facility]LMLC [facility] [id number] [facility] 2021-04-25 13:08:57 Outpatient Joel, Na STLMLC [facility] [id number] [facility] 2021-04-25 13:08:20 Outpatient Joel, Na [facility]LMLC [facility] [id number] [facility] 2021-04-25 13:07:52 Outpatient Joel, Na STLMLC [facility] [id number] [facility] 2021-04-25 13:06:50 Outpatient Joel, Na STLMLC ST[facility]C [id number] [facility] 2021-04-25 12:30:32 Outpatient Joel, Na STLMLC [facility] [id number] [facility] 2021-04-25 12:10:31 Outpatient Joel, Na [facility]ML[facility] [id number] [facility] 2021-04-25 11:31:42 Outpatient Joel, Na [facility]LMLC [facility] [id number] [facility] 2021-04-25 11:27:43 Outpatient Joel, Na [facility] [id number] [facility] 2021-04-25 11:18:11 Outpatient Joel, Na [facility]ML[facility] [id number] [facility] 2021-04-25 11:04:05 Outpatient Joel, Na STLMLC [facility] [id number] [facility] 2023-10-31 00:00:00 2023-10-31 00:00:00 (TEL) STLMLC ST[facility]C [id number] [facility] 2023-08-27 00:00:00 2023-08-27 00:00:00 Eleonora Chowdary, PROTOTYPE SEWER: [address], [place] [address] , Ph. [facility] - GC_GCBZW_[facility] [id number] [facility] 2023-07-29 00:00:00 2023-07-29 00:00:00 (TEL) STLMLC STLMLC [id number] [facility] 2023-06-16 00:00:00 2023-06-16 00:00:00 OFFICE VISIT ESTAB PT LEVEL 3 STLMLC STL[facility]C [id number] [facility] 2023-06-13 00:00:00 2023-06-13 00:00:00 (TEL) STLMLC STLMLC [id number] [facility] 2023-02-14 00:00:00 2023-02-14 00:00:00 OFFICE VISIT ESTAB PT LEVEL 3 STLMLC STLMLC [id number] [facility] 2023-01-24 00:00:00 2023-01-24 00:00:00 Outpatient GC_GCBZW_Ka yaditrudy_Joellen [facility] [id number] [facility] 2022-12-11 00:00:00 2022-12-11 00:00:00 (TEL) STLMLC STLMLC [id number] [facility] 2022-12-05 00:00:00 2022-12-05 00:00:00 OFFICE VISIT ESTAB PT LEVEL 3 STLMLC STLMLC [id number] [facility] 2022-11-01 00:00:00 2022-11-01 00:00:00 OFFICE VISIT ESTAB PT LEVEL 3 STLMLC STL[facility]C [id number] [facility] 2022-08-01 00:00:00 2022-08-01 00:00:00 OFFICE VISIT ESTAB PT LEVEL 4 [facility]C ST[facility]C [id number] [facility] 2022-01-11 00:00:00 2022-01-11 00:00:00 (TEL) STLMLC STLMLC [id number] [facility] 2022-01-11 00:00:00 2022-01-11 00:00:00 OFFICE VISIT EST PT LEVEL 3 STLMLC STL[facility]C [id number] [facility] 2021-04-09 00:00:00 2021-04-09 00:00:00 (TEL) STLMLC STLMLC [id number] [facility] 2021-04-09 00:00:00 2021-04-09 00:00:00 (TEL) STLMLC STLMLC [id number] [facility] 2021-04-05 00:00:00 2021-04-05 00:00:00 (TEL) STLMLC STLMLC [id number] [facility] 2021-04-05 00:00:00 2021-04-05 00:00:00 (TEL) STLMLC STLMLC [id number] [facility] 2021-04-05 00:00:00 2021-04-05 00:00:00 OFFICE VISIT EST PT LEVEL 3 STLMLC STL[facility]C [id number] [facility] 2021-02-12 00:00:00 2021-02-12 00:00:00 (TEL) STLMLC STLMLC [id number] [facility] 2021-01-09 00:00:00 2021-01-09 00:00:00 (TEL) STLMLC STLMLC [id number] [facility] 2021-01-09 00:00:00 2021-01-09 00:00:00 OFFICE VISIT EST PT LEVEL 3 STLMLC STLMLC [id number] [facility] 2020-12-06 00:00:00 2020-12-06 00:00:00 (TEL) STLMLC STLMLC [id number] [facility] 2020-12-06 00:00:00 2020-12-06 00:00:00 OFFICE VISIT EST PT LEVEL 3 STLMLC STL[facility]C [id number] [facility] 2020-11-15 00:00:00 2020-11-15 00:00:00 (TEL) STLMLC STLMLC [id number] [facility] 2020-11-02 00:00:00 2020-11-02 00:00:00 (TEL) STLMLC STLMLC [id number] [facility] 2020-11-02 00:00:00 2020-11-02 00:00:00 OFFICE VISIT EST PT LEVEL 3 STLMLC STL[facility]C [id number] [facility] 2020-08-24 00:00:00 2020-08-24 00:00:00 (TEL) STLMLC STLMLC [id number] [facility] 2020-08-23 00:00:00 2020-08-23 00:00:00 (EST. VIDEO) EST VIRTUAL VIDEO VISIT STLMLC STLMLC [id number] [facility] 2020-05-11 00:00:00 2020-05-11 00:00:00 (INJ) Injection STLMLC STLMLC [id number] [facility] 2020-03-03 00:00:00 2020-03-03 00:00:00 Outpatient [facility]LMLC [facility] [id number] [facility] 2019-09-20 13:15:00 2019-09-20 13:15:00 Outpatient [facility] [id number] [facility] 2019-09-20 11:58:00 2019-09-20 11:58:00 Outpatient [facility] [id number] [facility] 2019-04-28 11:20:00 2019-04-28 11:20:[address] [facility] [id number] [facility] 2018-05-08 11:24:00 2018-05-08 11:24:00 [facility] [id number] [facility] 2017-11-27 07:23:00 2017-11-27 07:23:[address] [facility] [id number] [facility] 2017-11-20 10:45:00 2017-11-20 10:45:[address] [facility] [id number] [facility] 2017-11-03 12:15:00 2017-11-03 12:15:00 [facility] [id number] [facility] 2017-08-27 14:40:00 2017-08-27 14:40:00 [facility] [id number] [facility] 2017-08-12 14:00:00 2017-08-12 14:00:[address] [facility] [id number] [facility] Results Test Description Test Time Test Comments Results Result Co mments Source POC, COVID 19 Antigen + Flu by SofiaPOC, COVID 19 Antigen + Flu by SofiaSARS-COV 2 AntigenSARS-COV 2 AntigenSARS-COV 2 AntigenSARS-COV 2 Antigen
--- NOTE | 2023-11-06 04:38 | EDPHYS ---
Physician Documentation [facility] Name: Jade Klein Age: 23 yrs Sex: Female : 2000 Arrival Date: 11/06/2023 Time: 04:16 Bed 5 Private MD: ED Physician Anabel Abdullahi HPI: 11/05 04:35 This 23 yrs old Black Female presents to ER via Unassigned with complaints of Insect sp3 Bite. 04:35 23-year-old female with no past medical history presents with insect bite to the left sp3 lower extremity anterior just beneath the knee that she first noticed a few hours ago. Patient states there is a blister with some redness around it. She denies any other injury, burn or rash. Remainder of ROS negative.. 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 - Infectious Disease History:: Denies. - Social history:: Smoking status: Patient denies any tobacco usage or history of. ROS: 04:36 Constitutional: Negative for fever, chills, and weight loss, Eyes: Negative for injury, sp3 pain, redness, and discharge, ENT: Negative for injury, pain, and discharge, Neck: Negative for injury, pain, and swelling, Cardiovascular: Negative for chest pain, palpitations, and edema, Respiratory: Negative for shortness of breath, cough, wheezing, and pleuritic chest pain, Abdomen/GI: Negative for abdominal pain, nausea, vomiting, diarrhea, and constipation, Back: Negative for injury and pain, Neuro: Negative for headache, weakness, numbness, tingling, and seizure, Psych: Negative for depression, anxiety, suicide ideation, homicidal ideation, and hallucinations, Allergy/Immunology: Negative for hives, rash, and allergies, Endocrine: Negative for neck swelling, polydipsia, polyuria, polyphagia, and marked weight changes, Hematologic/Lymphatic: Negative for swollen nodes, abnormal bleeding, and unusual bruising, 04:36 All other systems are negative, Exam: 04:36 Constitutional: This is a well developed, well nourished patient who is awake, alert, sp3 and in no acute distress. Head/Face: Normocephalic, atraumatic. Eyes: Pupils equal round and reactive to light, extra-ocular motions intact. Lids and lashes normal. Conjunctiva and sclera are non-icteric and not injected. Cornea within normal limits. Periorbital areas with no swelling, redness, or edema. ENT: Nares patent. No nasal discharge, no septal abnormalities noted. External auditory canals are clear. Oropharynx with no redness, swelling, or masses, exudates, or evidence of obstruction, uvula midline. Mucous membranes moist. Neck: Trachea midline, no thyromegaly or masses palpated, and no cervical lymphadenopathy. Supple, full range of motion without nuchal rigidity, or vertebral point tenderness. No Meningismus. Chest/axilla: Normal chest wall appearance and motion. Nontender with no deformity. No lesions are appreciated. Cardiovascular: Regular rate and rhythm with a normal S1 and S2. No gallops, murmurs, or rubs. Normal PMI, no JVD. No pulse deficits. Respiratory: Lungs have equal breath sounds bilaterally, clear to auscultation and percussion. No rales, rhonchi or wheezes noted. No increased work of breathing, no retractions or nasal flaring. Abdomen/GI: Soft, non-tender, with normal bowel sounds. No distension or tympany. No guarding or rebound. No evidence of tenderness throughout. Back: No spinal tenderness. No costovertebral tenderness. Full range of motion. Neuro: Awake and alert, GCS 15, oriented to person, place, time, and situation. Cranial nerves II-XII grossly intact. Motor strength 5/5 in all extremities. Sensory grossly intact. Cerebellar exam normal. Normal gait. Psych: Awake, alert, with orientation to person, place and time. Behavior, mood, and affect are within normal limits. 04:36 Skin: 0.5 cm blister left anterior estrella with approximately 1 cm radius erythema surrounding the blister. No skin sloughing, vesicles or other abnormalities noted. Distal neurovascular exam is normal.. Vital Signs: 04:38 BP 119 / 83; Pulse 79; Resp 16; Temp 98.7; Pulse Ox 99% on R/A; Weight 86.18 kg; Height al5 5 ft. 5 in. ; Pain 3/10; 04:38 Body Mass Index 31.62 (86.18 kg, 165.1 cm) al5 04:38 Pain Scale: Adult al5 MDM: 04:30 Patient medically screened. sp3 04:37 Data reviewed: vital signs, nurses notes. ED course: Patient has insect bite on the sp3 left lower extremity. I am not highly suspicious for necrosis, venomous spider bite, allergic reaction, burn or any other abnormality/pathology. Will treat with Bactrim and have patient follow-up with PCP along with warm compresses.. Administered Medications: No medications were administered Disposition Summary: 11/06/23 04:38 Discharge Ordered Notes: Location: Home sp3 Condition: Stable sp3 Diagnosis - Infected insect bite sp3 Followup: sp3 - With: Private Physician - When: Upon discharge from the Emergency Department - Reason: Continuance of care Discharge Instructions: - Discharge Summary Sheet sp3 - Insect Bite, Adult sp3 Forms: - Medication Reconciliation Form sp3 - Antibiotic Education sp3 - Prescription Opioid Use sp3 - Patient Portal Instructions sp3 - Leadership Thank You Letter sp3 Prescriptions: - Bactrim DS 800-160 mg Oral tablet - take 1 tablet ORAL route every 12 hours for 5 days; 10 tablet; Refills: 0, sp3 Product Selection Permitted Signatures: Anabel Abdullahi MD MD sp3 Eufemia Lewis RN RN al5
--- NOTE | 2023-11-06 04:46 | ER ---
Nurse's Notes [facility] Name: Jade Klein Age: 23 yrs Sex: Female : 2000 Arrival Date: 11/06/2023 Time: 04:16 Bed 5 Private MD: Diagnosis: Infected insect bite Presentation: 11/05 04:38 Chief complaint: Patient states: possible insect bite to L lower leg since 0200. al5 Coronavirus screen: At this time, the client does not indicate any symptoms associated with coronavirus-19. Ebola Screen: No symptoms or risks identified at this time. Initial Sepsis Screen: Does the patient meet any 2 criteria? No. Patient's initial sepsis screen is negative. Does the patient have a suspected source of infection? No. Patient's initial sepsis screen is negative. Risk Assessment: Do you want to hurt yourself or someone else? Patient reports no desire to harm self or others. Onset of symptoms was November 06, 2023. 04:38 Method Of Arrival: Ambulatory al5 04:38 Acuity: LUIS M 5 al5 Triage Assessment: 04:40 Bite description: bite sustained to left estrella by an unknown animal, animal information: al5 vaccination(s) is not applicable. General: Appears in no apparent distress. Behavior is calm, cooperative. Pain: Denies pain. EENT: No signs and/or symptoms were reported regarding the EENT system. Neuro: Level of Consciousness is awake, alert, obeys commands, Oriented to person, place, time, situation. Cardiovascular: Patient's skin is warm and dry. Respiratory: Airway is patent Respiratory effort is even, unlabored, Respiratory pattern is regular, symmetrical. GI: No signs and/or symptoms were reported involving the gastrointestinal system. : No signs and/or symptoms were reported regarding the genitourinary system. Derm: Skin is intact, Skin is normal, insect bite L lower estrella. Musculoskeletal: No signs and/or symptoms reported regarding the musculoskeletal system. ASSISTANT TO THE VICE PRESIDENT: 04:42 unknown al5 Historical: - Allergies: 04:40 No Known Allergies; al5 - PMHx: 04:40 None; al5 - PSHx: 04:40 None; al5 - Immunization history:: Adult Immunizations up to date. - Infectious Disease History:: Denies. - Social history:: Smoking status: Patient denies any tobacco usage or history of. Screenin:41 [facility] ED Fall Risk Assessment (Adult) History of falling in the last 3 months, al5 including since admission No falls in past 3 months (0 pts) Confusion or Disorientation No (0 pts) Intoxicated or Sedated No (0 pts) Impaired Gait No (0 pts) Mobility Assist Device Used No (0 pt) Altered Elimination No (0 pt) Score/Fall Risk Level 0 - 2 = Low Risk Oriented to surroundings, Maintained a safe environment, Hourly rounding (assess needs \T\ fall precautionary measures) done. Abuse screen: Denies threats or abuse. Denies injuries from another. Nutritional screening: No deficits noted. Tuberculosis screening: No symptoms or risk factors identified. Assessment: 04:41 General: see triage assessment.. al5 Vital Signs: 04:38 BP 119 / 83; Pulse 79; Resp 16; Temp 98.7; Pulse Ox 99% on R/A; Weight 86.18 kg; Height al5 5 ft. 5 in. ; Pain 3/10; 04:38 Body Mass Index 31.62 (86.18 kg, 165.1 cm) al5 04:38 Pain Scale: Adult al5 ED Course: 04:27 Patient arrived in ED. gm2 04:30 Anabel Abdullahi MD is Attending Physician. sp3 04:38 Eufemia Lewis, REED is Primary Nurse. al5 04:40 Triage completed. al5 04:41 Arm band placed on right wrist. Patient placed in the treatment room, on a stretcher. al5 04:42 Patient has correct armband on for positive identification. Bed in low position. Call al5 light in reach. Side rails up X 1. Provided Education on: discharge.. 04:42 No provider procedures requiring assistance completed. Patient did not have IV access al5 during this emergency room visit. Administered Medications: No medications were administered Medication: 04:42 VIS not applicable for this client. al5 Outcome: 04:38 Discharge ordered by . sp3 04:45 Discharged to home ambulatory, al5 04:45 Condition: good 04:45 Discharge instructions given to patient, Instructed on discharge instructions, follow up and referral plans. medication usage, Demonstrated understanding of instructions, follow-up care, medications, Prescriptions given X 1, 04:45 Patient left the ED. al5 Signatures: Anabel Abdullahi MD MD sp3 Veronica Lozano gm2 Eufemia Lewis, RN RN al5
[2023-11-06 04:50] VITALS: BP 119/83; TEMP 98.7; O2SAT 99
== END 2023-11-06 04:45 | disposition home or self-care (01) ==
LOC: ER 04:16
DX: S80.862A Insect bite (nonvenomous), left lower leg, initial encounter (principal)
CPT/HCPCS: 99283